=== PATIENT | female | born 1940 | race Caucasian/White ===

== ENCOUNTER 2024-06-26 08:16 | Emergency (ER) | payer OTHER, MEDICARE ==
[2024-06-26] MEDS ORDERED: Lidocaine 1% w/Epinephrine 1:100K 20 ML VIAL ONE (08:54)
[2024-06-26] MEDS ORDERED: Bacitracin 1 PK ONE (08:54)
[2024-06-26] MEDS ORDERED: Lidocaine/Transparent Dressing 1 EACH KIT ONE (08:54)
[2024-06-26] MEDS ORDERED: Boostrix 0.5 ML (Tdap) VIAL (>/=7 yrs of age) ONE (08:55)
[2024-06-26] MEDS ORDERED: Acetaminophen 325 MG TAB ONE (09:27)
== END 2024-06-26 10:01 | disposition home or self-care (01) ==
LOC: NAV ERS 08:16
DX: S01.01XA Laceration without foreign body of scalp, initial encounter (principal); S70.02XA Contusion of left hip, initial encounter; I10 Essential (primary) hypertension; W06.XXXA Fall from bed, initial encounter; Y93.89 Activity, other specified; Z23 Encounter for immunization; Z79.899 Other long term (current) drug therapy
CPT/HCPCS: 12001; 70450; 72170; 90471; 90715

== ENCOUNTER 2024-07-06 15:17 | Emergency (ER) | payer MEDICARE, OTHER | END 2024-07-06 16:28 | disposition home or self-care (01) | LOC: NAV ERS 15:17 | DX: S32.592A Other specified fracture of left pubis, initial encounter for closed fracture (principal); S01.01XD Laceration without foreign body of scalp, subsequent encounter; I10 Essential (primary) hypertension; W18.30XD Fall on same level, unspecified, subsequent encounter | CPT/HCPCS: 72170 ==